=== PATIENT | female | born 1965 | race African-American/Black ===

== ENCOUNTER 2017-11-13 04:32 | Inpatient (IN) | payer BC, OTHER ==
[~2017-11-13] VITALS: Ht 167.6 cm; Wt 99.8 kg
[2017-11-13 05:26] LABS: BASOPHILS % 0.6 % (0.0-2.0); EOSINOPHILS % 1.1 % (0.0-5.0); HEMATOCRIT. 36.7 % (36.0-48.0); HEMOGLOBIN. 12.2 g/dL (12.0-16.0); LYMPHOCYTES % 19.2 % (20.0-50.0); MEAN CORPUSCULAR HEMOGLOBIN 27.5 pg (28.0-32.0); MEAN CORPUSCULAR VOLUME 82.9 fL (81.0-99.0); MEAN PLATELET VOLUME 8.6 fl (7.4-10.4); MONOCYTES % 11.7 % (2.0-8.0); NEUTROPHILS % 67.4 % (40.0-76.0); PLATELET 191 x1000/uL (130-400); RED BLOOD CELL COUNT 4.42 mill/uL (4.2-5.4); RED CELL DISTRIBUTION WIDTH 14.1 % (11.6-14.6)
[2017-11-13 05:32] LABS: CHLORIDE 106 mEq/L (98-107)
[2017-11-13 05:36] LABS: INR 1.2; PARTIAL THROMBOPLASTIN TIME 27.7 sec (23.4-31.0); PROTHROMBIN TIME 12.4 sec (9.4-11.6)
[2017-11-13] MEDS ORDERED: ASPIRIN 81MG TABLET PO ONE (06:15)
[2017-11-13] MEDS ORDERED: FUROSEMIDE 20MG/2ML VIAL IVP ONE (06:15)
[2017-11-13] MEDS ORDERED: POTASSIUM CHLORIDE 20MEQ TABLET SR PO ONE (06:30)
[2017-11-13] MEDS ORDERED: MORPHINE SULFATE 4 MG/ML CPJ (NOT FOR IM USE) IV STA (06:59)
[2017-11-13] MEDS ORDERED: NITROGLYCERIN OINT 1GM/INCH UDPKT TD STA (06:59)
[2017-11-13] MEDS ORDERED: ONDANSETRON HCL 4MG/2ML VIAL IV STA ×2 (06:59→07:35)
[2017-11-13] MEDS ORDERED: FENTANYL CITRATE/PF 50MCG/ML 2ML VIAL IV ONE (07:30)
[2017-11-13] MEDS ORDERED: GUAIFENESIN 200MG/10ML SUGAR FREE UDC PO PRN (08:15)
[2017-11-13] MEDS ORDERED: NITROGLYCERIN 0.4MG TABLET SL SL PRN (08:15)
[2017-11-13] MEDS ORDERED: DIPHENHYDRAMINE 50MG/ML VIAL IV PRN (08:15)
[2017-11-13] MEDS ORDERED: HYDROCODONE/ACETAMINOPHEN 5/325MG TABLET PO PRN (08:15)
[2017-11-13] MEDS ORDERED: ACETAMINOPHEN 650MG SUPP PR PRN (08:15)
[2017-11-13] MEDS: FUROSEMIDE 40MG/4ML VIAL IVP SCH (08:15)
[2017-11-13] MEDS ORDERED: DOCUSATE SODIUM 100MG CAPSULE PO PRN (08:15)
[2017-11-13] MEDS ORDERED: DEXTROSE 50% WATER 50ML SYRINGE IV PRN (08:15)
[2017-11-13] MEDS ORDERED: NA PHOS,M-B/NA PHOS,DI-BA ENEMA 118ML PR PRN (08:15)
[2017-11-13] MEDS ORDERED: IPRATROPIUM/ALBUTEROL 0.5-3(2.5)MG/3ML NEB INH PRN (08:15)
[2017-11-13] MEDS ORDERED: MAGNESIUM/ALUMINUM HYDROXIDE/SIMETHICONE 30ML UDC PO PRN (08:15)
[2017-11-13] MEDS ORDERED: ACETAMINOPHEN 325MG TABLET PO PRN (08:15)
[2017-11-13] MEDS ORDERED: ACETAMINOPHEN 650MG/20.3ML UDC GT PRN (08:15)
[2017-11-13] MEDS ORDERED: INSULIN LISPRO 100 UNITS/ML SUBCUT SCH (08:20)
[2017-11-13 08:43] VITALS: BP 131/85
[2017-11-13] MEDS ORDERED: BLOOD SUGAR DIAGNOSTIC STRIP TEST SCH (08:45)
[2017-11-13 09:00] VITALS: BP 131/85
[2017-11-13] MEDS: HYDROCODONE/ACETAMINOPHEN 10/325MG TABLET PO PRN ×3 (09:48→22:19)
[2017-11-13] MEDS: ENOXAPARIN 40MG/0.4ML SYR SUBCUT SCH (11:05)
[2017-11-13 12:00] VITALS: BP 122/71
[2017-11-13] MEDS: ONDANSETRON HCL 4MG/2ML VIAL IV PRN (13:43)
[2017-11-13] MEDS: SODIUM CHLORIDE 0.9% INJ 3ML FLUSH IVF SCH ×2 (13:43→22:19)
[2017-11-13 15:26] LABS: CREATINE KINASE 37 IU/L (26-192)
[2017-11-13 16:00] VITALS: BP 136/82
[2017-11-13 19:25] LABS: CLARITY URINE CLEAR (CLEAR); COLOR URINE YELLOW (YELLOW); KETONES URINE NEGATIVE (NEGATIVE); LEUKOCYTE ESTERASE URINE TRACE (NEGATIVE); NITRITE URINE NEGATIVE (NEGATIVE); OCCULT BLOOD URINE NEGATIVE (NEGATIVE); PROTEIN URINE NEGATIVE (NEGATIVE); SPECIFIC GRAVITY URINE 1.019 (1.005-1.030); UROBILINOGEN URINE 0.2 E.U./dL (0.2-1.0)
[2017-11-13 19:26] LABS: *AMPHETAMINES SCREEN URINE NEGATIVE (NEGATIVE); *BARBITURATES SCREEN URINE NEGATIVE (NEGATIVE)
[2017-11-13 19:28] LABS: *BENZODIAZEPINES SCREEN URINE NEGATIVE (NEGATIVE); *COCAINE SCREEN URINE NEGATIVE (NEGATIVE); CANNABINOID URINE SCREEN NEGATIVE (NEGATIVE); METHADONE URINE SCREEN NEGATIVE (NEGATIVE); OPIATES URINE SCREEN PRESUMTIVE POSITIVE (NEGATIVE); PHENCYCLIDINE URINE SCREEN NEGATIVE (NEGATIVE)
[2017-11-13 20:00] VITALS: BP 146/84
[2017-11-13 23:34] LABS: CREATINE KINASE MB FRACTION 0.8 ng/mL (0.5-3.6)
[2017-11-14] VITALS (7 sets, daily range): BP systolic 128–169; BP diastolic 67–95
[2017-11-14] MEDS: SODIUM CHLORIDE 0.9% INJ 3ML FLUSH IVF SCH ×3 (06:25→21:11)
[2017-11-14] MEDS: ENOXAPARIN 40MG/0.4ML SYR SUBCUT SCH (08:18)
[2017-11-14] MEDS: ONDANSETRON HCL 4MG/2ML VIAL IV PRN (08:19)
[2017-11-14] MEDS: FUROSEMIDE 40MG/4ML VIAL IVP SCH (08:19)
[2017-11-14] MEDS: HYDROCODONE/ACETAMINOPHEN 10/325MG TABLET PO PRN (08:20)
[2017-11-14 08:22] LABS: BASOPHILS % 0.2 % (0.0-2.0); EOSINOPHILS % 0.1 % (0.0-5.0); HEMATOCRIT. 34.4 % (36.0-48.0); HEMOGLOBIN. 11.4 g/dL (12.0-16.0); LYMPHOCYTES % 7.7 % (20.0-50.0); MEAN CORPUSCULAR HEMOGLOBIN 27.2 pg (28.0-32.0); MEAN CORPUSCULAR VOLUME 82.2 fL (81.0-99.0); MEAN PLATELET VOLUME 9.5 fl (7.4-10.4); MONOCYTES % 12.8 % (2.0-8.0); NEUTROPHILS % 79.2 % (40.0-76.0); PLATELET 192 x1000/uL (130-400); RED BLOOD CELL COUNT 4.19 mill/uL (4.2-5.4); RED CELL DISTRIBUTION WIDTH 14.4 % (11.6-14.6)
[2017-11-14 08:32] LABS: CHLORIDE 101 mEq/L (98-107)
[2017-11-14 08:41] LABS: LDL CHOLESTEROL 45 mg/dL (5-100)
[2017-11-14 08:43] LABS: HDL CHOLESTEROL 42 mg/dL (40-59)
[2017-11-14] MEDS ORDERED: POTASSIUM CHLORIDE 20MEQ TABLET SR PO SCH (11:00)
[2017-11-14] MEDS: LEVOFLOXACIN 500MG TABLET PO SCH (11:21)
[2017-11-14] MEDS ORDERED: KETOROLAC 15MG/ML VIAL IV PRN (12:15)
[2017-11-14 14:15] LABS: T4 FREE >8.0 ng/dL ng/dL (0.76-1.46)
[2017-11-14] MEDS: METOPROLOL TARTRATE 25MG TABLET PO SCH ×2 (14:19→21:10)
[2017-11-14] MEDS ORDERED: ONDANSETRON HCL 4MG/2ML VIAL IV SCH (15:30)
[2017-11-14] MEDS: OXYMETAZOLINE HCL NASAL SPRAY 15ML BOTHNSTRLS SCH (16:23)
[2017-11-14] MEDS: CLONIDINE 0.1MG TABLET PO PRN (17:17)
[2017-11-14] MEDS ORDERED: METOCLOPRAMIDE HCL 10MG/2ML VIAL IV SCH (18:00)
[2017-11-14] MEDS: METOCLOPRAMIDE HCL 10MG/2ML VIAL IV SCH (20:30)
[2017-11-15] VITALS (7 sets, daily range): BP systolic 115–164; BP diastolic 68–92
[2017-11-15] MEDS: OXYMETAZOLINE HCL NASAL SPRAY 15ML BOTHNSTRLS SCH ×3 (01:04→21:27)
[2017-11-15] MEDS: CLONIDINE 0.1MG TABLET PO PRN (01:04)
[2017-11-15] MEDS: HYDROCODONE/ACETAMINOPHEN 10/325MG TABLET PO PRN ×2 (01:06→13:31)
[2017-11-15] MEDS: METOCLOPRAMIDE HCL 10MG/2ML VIAL IV SCH ×3 (02:00→13:32)
[2017-11-15] MEDS: SODIUM CHLORIDE 0.9% INJ 3ML FLUSH IVF SCH ×3 (06:00→22:00)
[2017-11-15] MEDS: FUROSEMIDE 40MG/4ML VIAL IVP SCH (08:58)
[2017-11-15] MEDS: METOPROLOL TARTRATE 25MG TABLET PO SCH (08:59)
[2017-11-15] MEDS: ENOXAPARIN 40MG/0.4ML SYR SUBCUT SCH (08:59)
[2017-11-15 10:04] LABS: BASOPHILS % 0.4 % (0.0-2.0); EOSINOPHILS % 0.2 % (0.0-5.0); HEMATOCRIT. 33.2 % (36.0-48.0); HEMOGLOBIN. 11.1 g/dL (12.0-16.0); LYMPHOCYTES % 18.9 % (20.0-50.0); MEAN CORPUSCULAR HEMOGLOBIN 27.4 pg (28.0-32.0); MEAN CORPUSCULAR VOLUME 82.1 fL (81.0-99.0); MEAN PLATELET VOLUME 9.4 fl (7.4-10.4); MONOCYTES % 11.6 % (2.0-8.0); NEUTROPHILS % 68.9 % (40.0-76.0); PLATELET 189 x1000/uL (130-400); RED BLOOD CELL COUNT 4.04 mill/uL (4.2-5.4); RED CELL DISTRIBUTION WIDTH 14.5 % (11.6-14.6)
[2017-11-15 10:12] LABS: CHLORIDE 103 mEq/L (98-107)
[2017-11-15] MEDS ORDERED: PROPRANOLOL HCL 20MG TABLET PO SCH (12:30)
[2017-11-15] MEDS: LOSARTAN POTASSIUM 25 MG TABLET PO SCH (13:31)
[2017-11-15] MEDS: AMLODIPINE 5MG TABLET PO SCH ×2 (13:31→21:26)
[2017-11-15] MEDS: LEVOFLOXACIN 500MG TABLET PO SCH (13:32)
[2017-11-15] MEDS: PROPYLTHIOURACIL 50MG TABLET PO SCH ×2 (14:30→21:25)
[2017-11-15] MEDS ORDERED: IOHEXOL-350 100 ML BOTTLE ONE (15:14)
[2017-11-15] MEDS ORDERED: LOSA25TA3 PO (16:46)
[2017-11-15] MEDS ORDERED: PROP50TA3 PO (16:46)
[2017-11-15] MEDS ORDERED: PROP20TA7 PO (16:46)
[2017-11-15] MEDS ORDERED: FURO-151 PO (16:50)
[2017-11-15] MEDS: IPRATROPIUM/ALBUTEROL 0.5-3(2.5)MG/3ML NEB HHN SCH (21:20)
[2017-11-15] MEDS: GUAIFENESIN 600MG ER TABLET PO SCH (21:25)
[2017-11-15] MEDS: PROPRANOLOL HCL 20MG TABLET PO SCH (21:27)
[2017-11-16] VITALS: BP 148/88
[2017-11-16] MEDS: IPRATROPIUM/ALBUTEROL 0.5-3(2.5)MG/3ML NEB HHN SCH ×2 (01:10→12:07)
[2017-11-16] MEDS: ACETYLCYSTEINE 200MG/ML 20% VIAL 4ML INH SCH ×2 (01:10→12:07)
[2017-11-16 05:08] VITALS: BP 149/87
[2017-11-16] MEDS: SODIUM CHLORIDE 0.9% INJ 3ML FLUSH IVF SCH (06:00)
[2017-11-16] MEDS: PROPYLTHIOURACIL 50MG TABLET PO SCH ×2 (06:04→15:23)
[2017-11-16 07:11] LABS: BASOPHILS % 0.5 % (0.0-2.0); EOSINOPHILS % 0.2 % (0.0-5.0); HEMATOCRIT. 33.6 % (36.0-48.0); HEMOGLOBIN. 11.2 g/dL (12.0-16.0); LYMPHOCYTES % 15.7 % (20.0-50.0); MEAN CORPUSCULAR HEMOGLOBIN 27.2 pg (28.0-32.0); MEAN CORPUSCULAR VOLUME 81.7 fL (81.0-99.0); MEAN PLATELET VOLUME 9.7 fl (7.4-10.4); MONOCYTES % 14.3 % (2.0-8.0); NEUTROPHILS % 69.3 % (40.0-76.0); PLATELET 228 x1000/uL (130-400); RED BLOOD CELL COUNT 4.12 mill/uL (4.2-5.4); RED CELL DISTRIBUTION WIDTH 13.9 % (11.6-14.6)
[2017-11-16 07:42] LABS: CHLORIDE 101 mEq/L (98-107)
[2017-11-16] MEDS ORDERED: PROP20TA7 PO (07:48)
[2017-11-16 08:00] VITALS: BP 151/86
[2017-11-16 08:44] VITALS: BP 149/87
[2017-11-16] MEDS: LEVOFLOXACIN 500MG TABLET PO SCH (08:44)
[2017-11-16] MEDS: LOSARTAN POTASSIUM 25 MG TABLET PO SCH (08:44)
[2017-11-16] MEDS: HYDROCODONE/ACETAMINOPHEN 10/325MG TABLET PO PRN (08:44)
[2017-11-16] MEDS: ENOXAPARIN 40MG/0.4ML SYR SUBCUT SCH (08:45)
[2017-11-16] MEDS: PROPRANOLOL HCL 20MG TABLET PO SCH (08:45)
[2017-11-16] MEDS: GUAIFENESIN 600MG ER TABLET PO SCH (09:00)
[2017-11-16] MEDS: OXYMETAZOLINE HCL NASAL SPRAY 15ML BOTHNSTRLS SCH (09:00)
[2017-11-16] MEDS ORDERED: FUROSEMIDE 40MG TABLET PO SCH (09:30)
[2017-11-16] MEDS: AMLODIPINE 5MG TABLET PO SCH (09:42)
[2017-11-16] MEDS ORDERED: LOSARTAN POTASSIUM 50 MG TABLET PO SCH (17:00)
== END 2017-11-16 15:05 | disposition home or self-care (01) | DRG 291 ==
LOC: ER 04:32 → 6WST 06:18 → EDBEDREQ 06:21 → ENRESERV 07:52
PROVIDERS: ADMIT Family Medicine; ATTEND Family Medicine
DX: I11.0 Hypertensive heart disease with heart failure (principal); J96.00 Acute respiratory failure, unspecified whether with hypoxia or hypercapnia; E05.91 Thyrotoxicosis, unspecified with thyrotoxic crisis or storm; E44.1 Mild protein-calorie malnutrition; I27.20 Pulmonary hypertension, unspecified; E83.52 Hypercalcemia; I50.31 Acute diastolic (congestive) heart failure; E87.6 Hypokalemia; E66.9 Obesity, unspecified; Z88.0 Allergy status to penicillin; Z88.8 Allergy status to other drugs, medicaments and biological substances; Z68.35 Body mass index [BMI] 35.0-35.9, adult
CPT/HCPCS: 36415; 71045; 71275; 80048; 80053; 80061; 80305; 81003; 82550; 82553; 83036; 83520; 83605; 83735; 83880; 84439; 84443; 84481; 84484; 85025; 85379; 85610; 85730; 86376; 87040; 87086; 93005; 93306; 93970; 96374; 96375; 99285; J1650; J1885; J1940; J2270; J2405; J2765; J3010; J7608; J7620; Q9967